=== PATIENT | male | born 1990 | race Asian ===

== ENCOUNTER 2017-02-10 01:19 | Emergency (ER) | payer OTHER ==
[~2017-02-10] VITALS: Ht 172.7 cm; Wt 70.0 kg
[2017-02-10 01:22] VITALS: TEMP 98.2
[2017-02-10 01:45] LABS: BASO # 0.1 (0.0-0.2); BASO % 0.5 % (0.0-2.0); EOS # 0.2 (0.0-0.7); EOS % 1.3 % (0-4.0); GRAN # 6.5 (1.4-6.5); GRAN % 51.2 % (42.2-75.2); HEMATOCRIT 45.9 % (42.0-52.0); HEMOGLOBIN 15.4 g/dl (13.5-18.0); LYMPH # 4.5 (1.2-3.4); LYMPH % 35.4 % (20.0-51.0); MEAN CELL VOLUME 85 fl (80.0-100.0); MEAN CORPUSCULAR HEMOGLOBIN 28 pg (27.0-31.0); MEAN CORPUSCULAR HGB CONC 34 g/dl (33.0-37.0); MONO # 1.5 (0.1-0.6); MONO % 11.3 % (1.7-9.3); PLATELET COUNT 260 K/mm3 (130-400); RED BLOOD COUNT 5.43 M/mm3 (4.20-5.60); REDCELL DISTRIBUTION WIDTH-CV 12.5 % (11.5-14.5); WHITE BLOOD COUNT 12.8 K/mm3 (4.8-10.8)
[2017-02-10 01:54] LABS: ADJUSTED CALCIUM 8.9 mg/dL (8.4-10.2); ALBUMIN 4.8 gm/dL (3.5-5.0); BILIRUBIN,TOTAL 1.1 mg/dL (0.0-1.0); CALCIUM 9.5 mg/dL (8.4-10.2); CREATININE, serum 0.98 mg/dL (0.66-1.25); POTASSIUM 3.6 mmol/L (3.4-5.0); TOTAL PROTEIN 7.9 gm/dL (6.4-8.2)
[2017-02-10] MEDS ORDERED: NORCO 325 MG-51 TAB PO (03:02)
[2017-02-10 03:32] VITALS: BP 130/80; PULSE 90
[2017-02-10] MEDS ORDERED: PERCOCET 325 MG1 TA2 PO (23:25)
[2017-02-10] MEDS ORDERED: FLOMAX 0.40.4 MG/CAP PO (23:27)
== END 2017-02-10 03:35 | disposition home or self-care (01) ==
LOC: COL.ER 01:19
PROVIDERS: Family Medicine
DX: N20.2 Calculus of kidney with calculus of ureter (principal); Z87.442 Personal history of urinary calculi
CPT/HCPCS: J1885; J2270; J2405; J7030; Q9967

== ENCOUNTER 2017-02-10 20:35 | Emergency (ER) | payer OTHER ==
[~2017-02-10] VITALS: Ht 172.7 cm; Wt 70.0 kg
[~2017-02-10 20:35] MED LIST: NORCO 325 MG-51 TAB PO
[2017-02-10] MEDS ORDERED: PERCOCET 325 MG1 TA2 PO (23:25)
[2017-02-10] MEDS ORDERED: FLOMAX 0.40.4 MG/CAP PO (23:27)
[2017-02-10 23:37] VITALS: BP 130/77; PULSE 81; TEMP 98.4
== END 2017-02-10 23:39 | disposition home or self-care (01) ==
LOC: COL.ER 20:35
DX: N20.2 Calculus of kidney with calculus of ureter (principal); Z87.442 Personal history of urinary calculi; R11.2 Nausea with vomiting, unspecified
CPT/HCPCS: J1885; J2060